=== PATIENT | female | born 1980 | race Caucasian/White ===

== ENCOUNTER 2023-01-25 12:33 | Day surgery (SDC) | payer BC ==
[~2023-01-25] VITALS: Ht 162.6 cm; Wt 74.8 kg
[2023-01-25 12:59] LABS: HEMATOCRIT 43.3 % (36.0-47.0); HEMOGLOBIN 14.2 g/dl (12.0-15.5); MEAN CORPUSCULAR HEMOGLOBIN 29.3 pg (27.0-33.0); MEAN CORPUSCULAR HGB CONC 32.8 g/dl (32.0-36.5); MEAN CORPUSCULAR VOLUME 89.5 fl (80.0-96.0); PLATELET COUNT, AUTOMATED 325 10^3/uL (150-450); RED BLOOD COUNT 4.84 10^6/uL (4.00-5.40); WHITE BLOOD COUNT 7.9 10^3/uL (4.0-10.0)
[2023-01-25] MEDS ORDERED: LR 1,000 ML IV SCH ×2 (13:15→15:15)
[2023-01-25] MEDS ORDERED: propofoL 200 MG/20 ML VIAL As Ordered ONE (13:52)
[2023-01-25] MEDS ORDERED: ONDANSETRON 4MG 2ML VIAL As Ordered ONE (13:52)
[2023-01-25] MEDS ORDERED: MIDAZOLAM INJ 2MG/2ML VIAL As Ordered ONE (13:52)
[2023-01-25] MEDS ORDERED: KETOROLAC 60MG 2ML VIAL As Ordered ONE (13:52)
[2023-01-25] MEDS ORDERED: fentaNYL 100 MCG/2 ML INJECTION As Ordered ONE (13:52)
[2023-01-25] MEDS ORDERED: LIDOCAINE 2% 100MG/5ML SDV (FOR ANES.) As Ordered ONE (13:52)
[2023-01-25] MEDS ORDERED: ceFAZolin SOD 2 GM in IV 1 EA IV ONE (13:55)
[2023-01-25] MEDS ORDERED: LIDOCAINE W/EPINEPHRINE 1% 20ML VIAL As Ordered ONE (14:12)
[2023-01-25] MEDS ORDERED: ACETAMINOPHEN 1000MG 100ML IV BAG As Ordered ONE (14:36)
[2023-01-25] MEDS ORDERED: fentaNYL 100 MCG/2 ML INJECTION IV PRN (15:15)
[2023-01-25] MEDS ORDERED: ONDANSETRON 4MG 2ML VIAL IV PRN (15:15)
[2023-01-25] MEDS ORDERED: oxyCODONE 5MG TAB PO PRN (15:15)
[2023-01-25] MEDS: HYDROMORPHONE HCL 0.5 MG/ 0.5 ML SYRINGE IV PRN ×2 (15:41→15:46)
[2023-01-25 16:20] VITALS: BP 115/63; TEMP 96.8; O2SAT 100
== END 2023-01-25 16:32 | disposition home or self-care (01) ==
LOC: M SDC 12:33
PROVIDERS: ATTEND Obstetrics & Gynecology
DX: R32 Unspecified urinary incontinence (principal); F17.219 Nicotine dependence, cigarettes, with unspecified nicotine-induced disorders
CPT/HCPCS: 36415; 57288; 85027; 86850; 86900; 86901; C1771; J0131; J0690; J1100; J1170; J1885; J2250; J2405; J3010